=== PATIENT | male | born 1955 | race Two or more races ===

== ENCOUNTER 2017-08-13 23:03 | Emergency (ER) | payer BC ==
[~2017-08-13] VITALS: Ht 172.7 cm; Wt 67.6 kg
[2017-08-13] MEDS ORDERED: DIAZEPAM INJ 5 MG/ML 2 ML IM ONE (23:45)
[2017-08-13] MEDS ORDERED: KETOROLAC TROMETHAMINE 60 MG/2 ML VIAL IM ONE (23:45)
== END 2017-08-14 00:05 | disposition home or self-care (01) ==
LOC: FSED 23:03
DX: R20.2 Paresthesia of skin (principal); M54.12 Radiculopathy, cervical region
CPT/HCPCS: 99282